=== PATIENT | male | born 1930 | race African-American/Black ===

== ENCOUNTER 2018-09-04 14:01 | Observation (INO) ==
[2018-09-04] MEDS ORDERED: ONDANSETRON 4 MG/2 ML VIAL IV STA (14:21)
[2018-09-04 15:01] LABS: Basophils % 0.4 % (0.0-0.8); Eosinophils # 0.2 10*3/uL (0.0-0.87); Hematocrit 36.2 VOL% (42.0-52.0); Hemoglobin 11.5 GM/DL (14.0-18.0); Immature Granulocytes % 0.4 %; Immature Granulocytes Absolute 0.02 #; Lymphocytes # 1.3 10*3/uL (1.4-4.0); Lymphocytes % 25.6 % (21.2-54.2); Mean Corpuscular HGB Conc 31.8 GM/DL (32-36); Mean Corpuscular Volume 86.8 FL (87-102); Mean Platelet Volume 9.6 FL (9.6-12.0); Monocytes % 10.7 % (1.7-12.7); Neutrophils % 59.9 % (38.7-73.9); Platelet Count 168 T/CUMM (130-400); Red Blood Count 4.17 MC/CUMM (3.8-5.5); Red Cell Distribution Width 13.4 % (9.3-17.3); White Blood Count 5.1 T/CUMM (4-12)
[2018-09-04 15:22] LABS: Albumin 4.1 G/DL (3.4-5.0); Bilirubin,Total 0.5 MG/DL (0.2-1.0); Osmolality,Calculated 276.8 MOS/KG (273-304); Total Protein 7.5 G/DL (6.4-8.3)
[2018-09-04 17:06] LABS: Apearance,Urine CLEAR (Clear); Bilirubin,Urine Negative (Negative); Blood, Urine Negative (Negative); Glucose,Urine (UA) Negative (Negative); Ketones,Urine Negative (Negative); Mucus,Urine Occasional /LPF (Occasional); Nitrite,Urine Negative (Negative); Protein,Urine Negative; Squamous Epithelial Cell,Urine Occasional /HPF (0-10); Urine Color Yellow (Yellow); Urine Specific Gravity 1.015 (1.001-1.035); Urine Urobilinogen < 2.0 EU/DL (0.2-1.0); WBC,Urine 1 /HPF (0-6)
[2018-09-04] MEDS ORDERED: ONDANSETRON 4 MG/2 ML VIAL IV PRN (18:01)
[2018-09-04] MEDS ORDERED: MORPHINE 4 MG/1 ML VIAL IV PRN (18:01)
[2018-09-04 20:46] LABS: Hematocrit 35.3 VOL% (42.0-52.0); Hemoglobin 11.2 GM/DL (14.0-18.0)
[2018-09-04] MEDS: PANTOPRAZOLE 40 MG TABLET PO SCH (21:11)
[2018-09-04] MEDS: SIMVASTATIN 20 MG TABLET PO SCH (21:11)
[2018-09-05 03:01] LABS: Basophils % 0.4 % (0.0-0.8); Eosinophils # 0.1 10*3/uL (0.0-0.87); Eosinophils % 2.7 % (0.00-10.9); Hematocrit 33.6 VOL% (42.0-52.0); Hemoglobin 10.7 GM/DL (14.0-18.0); Immature Granulocytes % 0.8 %; Immature Granulocytes Absolute 0.04 #; Lymphocytes # 1.6 10*3/uL (1.4-4.0); Lymphocytes % 30.5 % (21.2-54.2); Mean Corpuscular HGB Conc 31.8 GM/DL (32-36); Mean Corpuscular Volume 85.7 FL (87-102); Mean Platelet Volume 10.8 FL (9.6-12.0); Monocytes % 11.1 % (1.7-12.7); Neutrophils % 54.5 % (38.7-73.9); Platelet Count 114 T/CUMM (130-400); Red Blood Count 3.92 MC/CUMM (3.8-5.5); Red Cell Distribution Width 13.3 % (9.3-17.3); White Blood Count 5.1 T/CUMM (4-12)
[2018-09-05 03:21] LABS: Calcium 9.5 MG/DL (8.5-10.1); Osmolality,Calculated 275.8 MOS/KG (273-304); Thyroid Stimulating Hormone 2.86 uIU/ml (0.358-3.74); VLDL CHOLESTEROL 20.8 MG/DL
[2018-09-05] MEDS ORDERED: LISINOPRIL 20 MG TABLET PO SCH (09:00)
[2018-09-05] MEDS: BICALUTAMIDE 50 MG TABLET PO SCH ×2 (09:12→15:55)
[2018-09-05] MEDS: PANTOPRAZOLE 40 MG TABLET PO SCH ×3 (09:12→22:14)
[2018-09-05] MEDS: MAGNESIUM SULF RIDER 2 GM in PREMIX 1 EACH IV PRN ×2 (09:13→11:06)
[2018-09-05 10:11] LABS: Hematocrit 32.8 VOL% (42.0-52.0); Hemoglobin 10.8 GM/DL (14.0-18.0)
[2018-09-05] MEDS ORDERED: MAGNESIUM SULF RIDER 4 GM in PREMIX 1 EACH IV PRN (11:36)
[2018-09-05] MEDS: amLODIPine 5 MG TABLET PO SCH ×2 (14:19→15:55)
[2018-09-05] MEDS ORDERED: POLYETHYLENE GLYCOL POWDER 255 GM BOTTLE PO ONE (18:00)
[2018-09-05] MEDS ORDERED: MAGNESIUM CITRATE 300 ML BOTTLE PO ONE (21:00)
[2018-09-05] MEDS: SIMVASTATIN 20 MG TABLET PO SCH (22:14)
[2018-09-06 06:48] LABS: Basophils % 0.5 % (0.0-0.8); Eosinophils # 0.1 10*3/uL (0.0-0.87); Eosinophils % 1.6 % (0.00-10.9); Hematocrit 33.1 VOL% (42.0-52.0); Hemoglobin 10.8 GM/DL (14.0-18.0); Immature Granulocytes % 0.6 %; Immature Granulocytes Absolute 0.04 #; Lymphocytes # 1.3 10*3/uL (1.4-4.0); Lymphocytes % 20.7 % (21.2-54.2); Mean Corpuscular HGB Conc 32.6 GM/DL (32-36); Mean Corpuscular Volume 84.4 FL (87-102); Mean Platelet Volume 9.3 FL (9.6-12.0); Neutrophils % 67.6 % (38.7-73.9); Platelet Count 192 T/CUMM (130-400); Red Blood Count 3.92 MC/CUMM (3.8-5.5); Red Cell Distribution Width 13.2 % (9.3-17.3); White Blood Count 6.4 T/CUMM (4-12)
[2018-09-06 06:59] LABS: Osmolality,Calculated 265.7 MOS/KG (273-304)
[2018-09-06] MEDS ORDERED: PHENYLEPHRINE 1 MG/10 ML SYRINGE IV ONE (08:00)
[2018-09-06] MEDS ORDERED: LIDOCAINE 1% 5 ML VIAL ONE (08:00)
[2018-09-06] MEDS ORDERED: PROPOFOL 200 MG/20 ML VIAL IV ONE (08:00)
[2018-09-06] MEDS: PANTOPRAZOLE 40 MG TABLET PO SCH (10:22)
[2018-09-06] MEDS: amLODIPine 5 MG TABLET PO SCH (10:22)
[2018-09-06] MEDS: BICALUTAMIDE 50 MG TABLET PO SCH (10:22)
[2018-09-06 11:13] VITALS: BP 135/65
== END 2018-09-06 12:44 | disposition home or self-care (01) ==
LOC: N.ED 14:01 → N.EDINP 14:01 → N.5E 18:44
PROVIDERS: ADMIT Internal Medicine; ATTEND Internal Medicine

== ENCOUNTER 2018-09-08 10:17 | Inpatient (IN) ==
[2018-09-08] MEDS ORDERED: SODIUM CHLORIDE 0.9% 500 ML IV STA (10:42)
[2018-09-08 11:10] LABS: Basophils % 0.2 % (0.0-0.8); Eosinophils # 0.1 10*3/uL (0.0-0.87); Eosinophils % 1.7 % (0.00-10.9); Hemoglobin 8.9 GM/DL (14.0-18.0); Immature Granulocytes % 0.5 %; Immature Granulocytes Absolute 0.03 #; Lymphocytes # 1.1 10*3/uL (1.4-4.0); Lymphocytes % 18.1 % (21.2-54.2); Mean Corpuscular Volume 85.2 FL (87-102); Mean Platelet Volume 10.1 FL (9.6-12.0); Monocytes % 8.8 % (1.7-12.7); Neutrophils % 70.7 % (38.7-73.9); Platelet Count 154 T/CUMM (130-400); Red Blood Count 3.17 MC/CUMM (3.8-5.5); Red Cell Distribution Width 13.5 % (9.3-17.3); White Blood Count 5.8 T/CUMM (4-12)
[2018-09-08 11:19] LABS: PT Patient Result 10.7 SECS
[2018-09-08 11:32] LABS: Alanine Aminotransferase 18 U/L (16-61); Albumin 3.2 G/DL (3.4-5.0); Alkaline Phosphatase 50 U/L (45-117); Aspartate Amino Transferase 14 U/L (0-37); Bilirubin,Total < 0.39 MG/DL (0.2-1.0); Blood Urea Nitrogen 41 MG/DL (7-18); Calcium 8.6 MG/DL (8.5-10.1); Glucose 120 MG/DL (74-106); Total Protein 5.8 G/DL (6.4-8.3)
[2018-09-08 11:36] LABS: Troponin I 0.065 NG/ML (0.00-0.045)
[2018-09-08 13:10] LABS: ABG Base Excess -9.7 MMOL/L (-2.5-2.5); ABG HCO3 16.6 MMOL/L (20-26); ABG Oxygen Saturation 95.5 % (95-100); ABG PCO2 35.5 MM HG (35-48); ABG PH 7.273 (7.35-7.45); ABG PO2 85.4 MM HG (80-95); ABG TCO2 15.2 MMOL/L (23-27)
[2018-09-08 14:16] LABS: Apearance,Urine Slightly Hazy (Clear); Bacteria,Urine Occasional /HPF (Few); Bilirubin,Urine Negative (Negative); Blood, Urine Moderate mg/dL (Negative); Glucose,Urine (UA) Negative (Negative); Hyaline Casts,Urine 21 /LPF (0-3); Ketones,Urine Negative (Negative); Mucus,Urine Occasional /LPF (Occasional); Nitrite,Urine Negative (Negative); Protein,Urine Negative; RBC,Urine 1 /HPF (0-4); Squamous Epithelial Cell,Urine Occasional /HPF (0-10); Urine Color Yellow (Yellow); Urine Specific Gravity 1.006 (1.001-1.035); Urine Urobilinogen < 2.0 EU/DL (0.2-1.0); WBC,Urine 1 /HPF (0-6)
[2018-09-08] MEDS ORDERED: ONDANSETRON 4 MG/2 ML VIAL IV PRN (14:21)
[2018-09-08] MEDS: ACETAMINOPHEN 325 MG TABLET PO PRN (14:50)
[2018-09-08] MEDS: PANTOPRAZOLE 40 MG TABLET PO SCH (17:25)
[2018-09-08] MEDS: SODIUM BICARB INJ 50 MEQ in DEXTROSE 5% 1,000 ML IV SCH (18:13)
[2018-09-09] MEDS: SODIUM BICARB INJ 50 MEQ in DEXTROSE 5% 1,000 ML IV SCH ×2 (04:34→15:12)
[2018-09-09 05:30] LABS: Calcium 9.6 MG/DL (8.5-10.1); Osmolality,Calculated 285.5 MOS/KG (273-304)
[2018-09-09 05:31] LABS: Basophils % 0.3 % (0.0-0.8); Eosinophils # 0.3 10*3/uL (0.0-0.87); Hematocrit 32.7 VOL% (42.0-52.0); Hemoglobin 10.6 GM/DL (14.0-18.0); Immature Granulocytes % 0.4 %; Immature Granulocytes Absolute 0.03 #; Lymphocytes # 1.5 10*3/uL (1.4-4.0); Lymphocytes % 22.7 % (21.2-54.2); Mean Corpuscular HGB Conc 32.4 GM/DL (32-36); Mean Corpuscular Volume 85.6 FL (87-102); Mean Platelet Volume 10.4 FL (9.6-12.0); Monocytes % 9.8 % (1.7-12.7); Neutrophils % 62.8 % (38.7-73.9); Platelet Count 166 T/CUMM (130-400); Red Blood Count 3.82 MC/CUMM (3.8-5.5); Red Cell Distribution Width 13.6 % (9.3-17.3); White Blood Count 6.7 T/CUMM (4-12)
[2018-09-09] MEDS: BICALUTAMIDE 50 MG TABLET PO SCH (08:14)
[2018-09-09] MEDS: PANTOPRAZOLE 40 MG TABLET PO SCH (08:14)
[2018-09-09] MEDS: ACETAMINOPHEN 325 MG TABLET PO PRN ×2 (18:05→22:34)
[2018-09-10] MEDS: SODIUM BICARB INJ 50 MEQ in DEXTROSE 5% 1,000 ML IV SCH ×3 (01:16→21:51)
[2018-09-10 05:43] LABS: Calcium 8.8 MG/DL (8.5-10.1); Osmolality,Calculated 289.1 MOS/KG (273-304)
[2018-09-10] MEDS: BICALUTAMIDE 50 MG TABLET PO SCH (08:55)
[2018-09-10] MEDS: PANTOPRAZOLE 40 MG TABLET PO SCH (08:55)
[2018-09-10] MEDS: TAMSULOSIN 0.4 MG CAPSULE PO SCH (15:07)
[2018-09-11 05:18] LABS: Basophils % 0.7 % (0.0-0.8); Eosinophils # 0.3 10*3/uL (0.0-0.87); Eosinophils % 4.8 % (0.00-10.9); Hematocrit 29.1 VOL% (42.0-52.0); Hemoglobin 9.8 GM/DL (14.0-18.0); Immature Granulocytes % 0.4 %; Immature Granulocytes Absolute 0.02 #; Lymphocytes # 1.4 10*3/uL (1.4-4.0); Lymphocytes % 24.6 % (21.2-54.2); Mean Corpuscular HGB Conc 33.7 GM/DL (32-36); Mean Corpuscular Volume 83.6 FL (87-102); Mean Platelet Volume 10.5 FL (9.6-12.0); Monocytes % 10.8 % (1.7-12.7); Neutrophils % 58.7 % (38.7-73.9); Platelet Count 169 T/CUMM (130-400); Red Blood Count 3.48 MC/CUMM (3.8-5.5); Red Cell Distribution Width 13.6 % (9.3-17.3); White Blood Count 5.6 T/CUMM (4-12)
[2018-09-11 05:30] LABS: Calcium 9.4 MG/DL (8.5-10.1)
[2018-09-11] MEDS: BICALUTAMIDE 50 MG TABLET PO SCH (09:39)
[2018-09-11] MEDS: SODIUM BICARB INJ 50 MEQ in DEXTROSE 5% 1,000 ML IV SCH ×2 (09:39→19:43)
[2018-09-11] MEDS: TAMSULOSIN 0.4 MG CAPSULE PO SCH (09:39)
[2018-09-11] MEDS: PANTOPRAZOLE 40 MG TABLET PO SCH (09:39)
[2018-09-11 21:10] VITALS: BP 162/62
== END 2018-09-11 20:11 | disposition home health service (06) | DRG 682 ==
LOC: EDUNIT# → N.ED 10:17 → SUATTDRO 14:21 → N.EDINP 14:21 → N.4E 16:05
PROVIDERS: ADMIT Internal Medicine; ATTEND Internal Medicine

== ENCOUNTER 2019-03-02 21:47 | Observation (INO) ==
[2019-03-02] MEDS ORDERED: METOCLOPRAMIDE 10 MG/2 ML VIAL IV STA (22:09)
[2019-03-02] MEDS ORDERED: DICYCLOMINE 20 MG/2 ML AMP IM ONE (22:09)
[2019-03-02] MEDS ORDERED: ONDANSETRON 4 MG/2 ML VIAL IV STA (22:09)
[2019-03-02] MEDS ORDERED: PANTOPRAZOLE 40 MG VIAL IV STA (22:09)
[2019-03-02] MEDS ORDERED: SODIUM CHLORIDE 0.9% 1,000 ML IV STA (22:09)
[2019-03-02] MEDS ORDERED: metroNIDAZOLE INJ 500 MG in PREMIX 1 EACH IV STA (22:09)
[2019-03-02 23:36] LABS: Basophils % 0.4 % (0.0-0.8); Immature Granulocytes % 0.4 %; Immature Granulocytes Absolute 0.03 #; Lymphocytes # 1.1 10*3/uL (1.4-4.0); Lymphocytes % 13.6 % (21.2-54.2); Mean Corpuscular HGB Conc 33.3 GM/DL (32-36); Mean Corpuscular Volume 84.9 FL (87-102); Mean Platelet Volume 9.6 FL (9.6-12.0); Monocytes % 7.1 % (1.7-12.7); Neutrophils % 78.5 % (38.7-73.9); Platelet Count 209 T/CUMM (130-400); Red Blood Count 4.24 MC/CUMM (3.8-5.5); Red Cell Distribution Width 13.8 % (9.3-17.3); White Blood Count 7.9 T/CUMM (4-12)
[2019-03-02 23:45] LABS: PT Patient Result 10.4 SECS (9.6-12.2); Partial Thromboplastin Time 24.6 SECS (20.8-36.0)
[2019-03-03 00:02] LABS: Alanine Aminotransferase 41 U/L (16-61); Alkaline Phosphatase 63 U/L (45-117); Amylase 54 U/L (25-115); Aspartate Amino Transferase 28 U/L (0-37); Blood Urea Nitrogen 20 MG/DL (7-18); Calcium 10.1 MG/DL (8.5-10.1); Estimated Glom Filtration Rate 69 ML/MIN; Glucose 116 MG/DL (74-106); Osmolality,Calculated 278.7 MOS/KG (273-304); Total Protein 7.5 G/DL (6.4-8.3); Troponin I < 0.015 NG/ML (0.00-0.045)
[2019-03-03 00:30] LABS: Apearance,Urine CLEAR (Clear); Bilirubin,Urine Negative (Negative); Blood, Urine Negative (Negative); Glucose,Urine (UA) Negative (Negative); Hyaline Casts,Urine 7 /LPF (0-3); Ketones,Urine 5 mg/dL (Negative); Mucus,Urine Occasional /LPF (Occasional); Nitrite,Urine Negative (Negative); Protein,Urine Negative; RBC,Urine <1 /HPF (0-4); Squamous Epithelial Cell,Urine Occasional /HPF (0-10); Urine Color Yellow (Yellow); Urine Specific Gravity 1.014 (1.001-1.035); Urine Urobilinogen < 2.0 EU/DL (0.2-1.0); WBC,Urine 3 /HPF (0-6)
[2019-03-03] MEDS ORDERED: diphenhydrAMINE CAP 25 MG CAPSULE PO PRN (01:52)
[2019-03-03] MEDS ORDERED: PROMETHAZINE 25 MG/1 ML VIAL IM PRN (01:52)
[2019-03-03] MEDS ORDERED: ONDANSETRON 4 MG/2 ML VIAL IV PRN (01:52)
[2019-03-03] MEDS ORDERED: NICOTINE 21 MG/24 HR PATCH TRANSDERM PRN (01:52)
[2019-03-03] MEDS ORDERED: ACETAMINOPHEN 325 MG TABLET PO PRN (01:52)
[2019-03-03] MEDS: SODIUM CHLORIDE 0.9% 1,000 ML IV SCH ×3 (04:46→17:18)
[2019-03-03 08:05] LABS: Basophils % 0.5 % (0.0-0.8); Eosinophils % 0.2 % (0.00-10.9); Hematocrit 31.5 VOL% (42.0-52.0); Hemoglobin 10.2 GM/DL (14.0-18.0); Immature Granulocytes % 0.3 %; Immature Granulocytes Absolute 0.02 #; Lymphocytes # 1.3 10*3/uL (1.4-4.0); Lymphocytes % 19.4 % (21.2-54.2); Mean Corpuscular HGB Conc 32.4 GM/DL (32-36); Mean Corpuscular Volume 86.3 FL (87-102); Mean Platelet Volume 10.1 FL (9.6-12.0); Monocytes % 11.1 % (1.7-12.7); Neutrophils % 68.5 % (38.7-73.9); Platelet Count 181 T/CUMM (130-400); Red Blood Count 3.65 MC/CUMM (3.8-5.5); Red Cell Distribution Width 13.7 % (9.3-17.3); White Blood Count 6.7 T/CUMM (4-12)
[2019-03-03] MEDS: metroNIDAZOLE INJ 500 MG in PREMIX 1 EACH IV SCH ×2 (09:16→15:21)
[2019-03-03] MEDS: PANTOPRAZOLE 40 MG VIAL IV SCH ×2 (12:25→21:46)
[2019-03-03] MEDS: CHOLESTYRAMINE 4 GM PACK PO SCH ×2 (12:25→21:45)
[2019-03-04] MEDS: metroNIDAZOLE INJ 500 MG in PREMIX 1 EACH IV SCH ×3 (00:47→16:19)
[2019-03-04] MEDS: SODIUM CHLORIDE 0.9% 1,000 ML IV SCH (01:18)
[2019-03-04 06:07] LABS: Basophils % 0.5 % (0.0-0.8); Eosinophils # 0.1 10*3/uL (0.0-0.87); Eosinophils % 1.4 % (0.00-10.9); Hematocrit 32.5 VOL% (42.0-52.0); Hemoglobin 10.8 GM/DL (14.0-18.0); Immature Granulocytes % 0.3 %; Immature Granulocytes Absolute 0.02 #; Lymphocytes # 1.5 10*3/uL (1.4-4.0); Lymphocytes % 24.8 % (21.2-54.2); Mean Corpuscular HGB Conc 33.2 GM/DL (32-36); Mean Corpuscular Volume 85.3 FL (87-102); Mean Platelet Volume 10.5 FL (9.6-12.0); Monocytes % 9.6 % (1.7-12.7); Neutrophils % 63.4 % (38.7-73.9); Platelet Count 184 T/CUMM (130-400); Red Blood Count 3.81 MC/CUMM (3.8-5.5); Red Cell Distribution Width 13.9 % (9.3-17.3); White Blood Count 5.9 T/CUMM (4-12)
[2019-03-04 06:49] LABS: Calcium 8.7 MG/DL (8.5-10.1); Osmolality,Calculated 286.7 MOS/KG (273-304)
[2019-03-04] MEDS ORDERED: MAGNESIUM SULF RIDER 4 GM in PREMIX 1 EACH IV ONE (07:12)
[2019-03-04] MEDS ORDERED: ALUM/MAG/SIMETH/LIDO VISC 1:1 30 ML BOTTLE PO ONE (08:20)
[2019-03-04] MEDS: CHOLESTYRAMINE 4 GM PACK PO SCH (11:28)
[2019-03-04] MEDS: ASPIRIN EC 81 MG TABLET PO SCH (11:28)
[2019-03-04] MEDS: PANTOPRAZOLE 40 MG VIAL IV SCH ×2 (11:28→21:48)
[2019-03-04 13:29] LABS: Apearance,Urine CLEAR (Clear); Bilirubin,Urine Negative (Negative); Blood, Urine Negative (Negative); Glucose,Urine (UA) Negative (Negative); Ketones,Urine Negative (Negative); Mucus,Urine Occasional /LPF (Occasional); Nitrite,Urine Negative (Negative); Protein,Urine Negative; RBC,Urine <1 /HPF (0-4); Squamous Epithelial Cell,Urine Occasional /HPF (0-10); Urine Color Straw (Yellow); Urine Specific Gravity 1.005 (1.001-1.035); Urine Urobilinogen < 2.0 EU/DL (0.2-1.0); WBC,Urine <1 /HPF (0-6)
[2019-03-04] MEDS: CIPROFLOXACIN INJ 400 MG in PREMIX 1 EACH IV SCH ×2 (14:27→23:01)
[2019-03-04] MEDS ORDERED: traZODone 50 MG TABLET PO PRN (15:28)
[2019-03-04] MEDS: METOPROLOL TARTRATE 25 MG TABLET PO SCH ×2 (16:19→21:48)
[2019-03-04] MEDS: TAMSULOSIN 0.4 MG CAPSULE PO SCH (21:48)
[2019-03-04] MEDS: MAGNESIUM OXIDE 400 MG TABLET PO SCH (21:49)
[2019-03-05] MEDS: metroNIDAZOLE INJ 500 MG in PREMIX 1 EACH IV SCH ×2 (01:37→08:36)
[2019-03-05 03:22] LABS: Bilirubin,Total 1.1 MG/DL (0.2-1.0); Calcium 8.8 MG/DL (8.5-10.1); Osmolality,Calculated 280.1 MOS/KG (273-304); Total Protein 5.8 G/DL (6.4-8.3)
[2019-03-05] MEDS: PANTOPRAZOLE 40 MG VIAL IV SCH (08:35)
[2019-03-05] MEDS ORDERED: LISINOPRIL 20 MG TABLET PO SCH (09:00)
[2019-03-05] MEDS ORDERED: POTASSIUM CHLORIDE 20 MEQ TABLET PO ONE (09:37)
[2019-03-05] MEDS: ASPIRIN EC 81 MG TABLET PO SCH (09:42)
[2019-03-05] MEDS: TAMSULOSIN 0.4 MG CAPSULE PO SCH (09:43)
[2019-03-05] MEDS: MAGNESIUM OXIDE 400 MG TABLET PO SCH (09:43)
[2019-03-05] MEDS: METOPROLOL TARTRATE 25 MG TABLET PO SCH (09:43)
[2019-03-05] MEDS ORDERED: POTASSIUM CHLORIDE RIDER 10 MEQ in PREMIX 1 EACH IV PRN (09:43)
[2019-03-05] MEDS: CIPROFLOXACIN INJ 400 MG in PREMIX 1 EACH IV SCH (10:15)
[2019-03-05 12:02] VITALS: BP 116/55
[2019-03-05] MEDS ORDERED: SIMVASTATIN 20 MG TABLET PO SCH (21:00)
[2019-03-06] MEDS ORDERED: TUBERCULIN SKIN TEST 0.1 ML SYRINGE INTRADERM ONE ×2 (15:30→15:46)
== END 2019-03-05 13:51 | disposition home health service (06) ==
LOC: EDUNIT# → EDBD → N.ED 21:47 → N.EDINP 21:47 → SUATTDRO 03-03 01:52 → N.5E 03-03 02:08
PROVIDERS: ADMIT Internal Medicine; ATTEND Family Medicine